=== PATIENT | male | born 1955 | race Two or more races ===

== ENCOUNTER 2017-09-11 21:41 | Inpatient (IN) | payer MEDICARE, MEDICAID ==
[~2017-09-11] VITALS: Ht 167.6 cm; Wt 69.9 kg
[2017-09-11] MEDS ORDERED: NITROGLYCERIN 50 MG/D5% WATER 250 ML IV PRN (21:45)
[2017-09-11 21:59] LABS: BASOPHILS % (AUTO) 0.7 % (0.0-2.0); EOSINOPHILS % (AUTO) 3.4 % (1.0-6.0); HEMATOCRIT 39.4 % (41-53); HEMOGLOBIN 13.3 g/dL (13.5-17.5); LYMPHOCYTES # (AUTO) 0.9 K/uL (1.0-4.8); LYMPHOCYTES % (AUTO) 10.9 % (22.0-44.0); MEAN CORPUSCULAR HEMOGLOBIN 29.6 pg (26.0-34.0); MEAN CORPUSCULAR HGB CONC 33.7 G/dL (31.0-37.0); MEAN CORPUSCULAR VOLUME 88 fL (80-100); MONOCYTES # (AUTO) 0.5 K/uL (0.1-1.0); MONOCYTES % (AUTO) 6.1 % (2.0-9.0); NEUTROPHILS # (AUTO) 6.9 K/uL (1.8-7.7); NEUTROPHILS % (AUTO) 78.9 % (40.0-70.0); PLATELET COUNT (AUTO) 215 K/uL (150-450); RED BLOOD CELL COUNT(AUTO) 4.48 MIL/uL (4.50-5.90); RED CELL DISTRIBUTION WIDTH 17.5 % (11.5-14.5); WHITE BLOOD COUNT (AUTO) 8.7 K/uL (4.5-11.0)
[2017-09-11] MEDS ORDERED: FUROSEMIDE 40 MG/4 ML VIAL IVP ONE (22:00)
[2017-09-11 22:04] LABS: RBC MORPHOLOGY COMMENT ABNORMAL RBC MORPH
[2017-09-11 22:09] LABS: ANION GAP 12 mmol/L (8-16); CALCIUM, TOTAL 9.2 mg/dL (8.8-10.5); CARBON DIOXIDE 27 mmol/L (22-29); CHLORIDE 95 mmol/L (98-107); CREATININE 7.93 mg/dL (0.60-1.30); GLOMERULAR FILTR. RATE CALC 7 mL/min (>60); POTASSIUM 5.3 mmol/L (3.5-5.1); SODIUM SERUM 134 mmol/L (136-145); UREA NITROGEN, BLOOD 46 mg/dL (7-18)
[2017-09-11 22:19] LABS: PROTHROMBIN TIME 10.4 SEC (9.4-11.6)
[2017-09-11 22:34] LABS: ALANINE AMINOTRANSFERASE 13 U/L (12-78); ALBUMIN 3.6 g/dL (3.4-5.0); ASPARTATE AMINOTRANSFERASE 13 U/L (15-37); BILIRUBIN,TOTAL 0.6 mg/dL (0.1-1.0); CREATINE KINASE MB 2.7 ng/mL (0-5); CREATINE KINASE, TOTAL 84 U/L (39-308); TOTAL PROTEIN, SERUM 8.5 g/dL (6.4-8.2)
[2017-09-11] MEDS ORDERED: CLON0.3T PO (22:34)
[2017-09-11] MEDS ORDERED: COMB5OS OU (22:34)
[2017-09-11] MEDS ORDERED: INSNOV SQ (22:34)
[2017-09-11] MEDS ORDERED: HYDR-4061 PO (22:34)
[2017-09-11] MEDS ORDERED: NIFE60TA81 PO (22:34)
[2017-09-11] MEDS ORDERED: DORZ210OS OU (22:34)
[2017-09-11] MEDS ORDERED: SIMV-260 PO (22:34)
[2017-09-11] MEDS ORDERED: INSLAN SQ (22:34)
[2017-09-11] MEDS ORDERED: SEVEC800 PO (22:34)
[2017-09-11] MEDS ORDERED: CILO100T PO (22:34)
[2017-09-11] MEDS ORDERED: PARO20TA24 PO (22:34)
[2017-09-11] MEDS ORDERED: OMEP20 PO (22:34)
[2017-09-11] MEDS ORDERED: CLOP75 PO (22:34)
[2017-09-11] MEDS ORDERED: CLOT15CR5 TP (22:34)
[2017-09-11 22:39] LABS: B-TYPE NATRIURETIC PEPTIDE 2920 pg/mL (0-100)
[2017-09-11] MEDS ORDERED: 0.9% SODIUM CHLORIDE 10 ML SYRINGE IVP PRN (22:45)
[2017-09-11] MEDS ORDERED: ASPIRIN 325 MG TABLET PO ONE (22:45)
[2017-09-11] MEDS ORDERED: ONDANSETRON HCL 4 MG/2 ML VIAL IVP PRN ×2 (22:45→23:00)
[2017-09-11] MEDS ORDERED: ACETAMINOPHEN 325 MG TABLET PO PRN ×2 (22:45→23:00)
[2017-09-11] MEDS ORDERED: BISACODYL 10 MG RECTAL RECTAL SUPPOSITORY PR PRN (23:00)
[2017-09-11] MEDS ORDERED: DEXTROSE 50%-WATER 25 GM/50 ML SYRINGE IVP PRN (23:00)
[2017-09-11] MEDS ORDERED: ALBUTEROL SULFATE 2.5 MG/0.5 ML NEB SOLUTION NEB PRN (23:00)
[2017-09-11] MEDS ORDERED: OxyCODONE HCL/ACETAMINOPHEN 5-325 MG TABLET PO PRN (23:00)
[2017-09-11] MEDS ORDERED: IPRATROPIUM BROMIDE 0.5 MG/2.5 ML NEB SOLUTION NEB PRN (23:00)
[2017-09-11] MEDS ORDERED: MAGNESIUM HYDROXIDE SUSPENSION 30 ML UDCUP PO PRN (23:00)
[2017-09-11] MEDS ORDERED: ZOLPIDEM TARTRATE 5 MG TABLET PO PRN (23:00)
[2017-09-12] VITALS: BP_SYST 220; BP_DIAS 106; BP_DIAS 160
[2017-09-12] MEDS ORDERED: INFLUENZA VIRUS VACCINE QVS 2017-18 (3YR+)/PF 60 MCG/0.5 ML SYRINGE IM ONE (02:30)
[2017-09-12 04:00] VITALS: BP 206/112
[2017-09-12] MEDS ORDERED: CloNIDine HCL 0.1 MG TABLET PO PRN (04:15)
[2017-09-12 05:10] LABS: BASOPHILS % (AUTO) 1.2 % (0.0-2.0); EOSINOPHILS % (AUTO) 1.3 % (1.0-6.0); HEMATOCRIT 32.7 % (41-53); HEMOGLOBIN 11.1 g/dL (13.5-17.5); LYMPHOCYTES # (AUTO) 0.8 K/uL (1.0-4.8); LYMPHOCYTES % (AUTO) 12.1 % (22.0-44.0); MEAN CORPUSCULAR HEMOGLOBIN 29.9 pg (26.0-34.0); MEAN CORPUSCULAR HGB CONC 33.9 G/dL (31.0-37.0); MEAN CORPUSCULAR VOLUME 88 fL (80-100); MONOCYTES # (AUTO) 0.5 K/uL (0.1-1.0); MONOCYTES % (AUTO) 7.8 % (2.0-9.0); NEUTROPHILS # (AUTO) 4.9 K/uL (1.8-7.7); NEUTROPHILS % (AUTO) 77.6 % (40.0-70.0); PLATELET COUNT (AUTO) 185 K/uL (150-450); RED BLOOD CELL COUNT(AUTO) 3.72 MIL/uL (4.50-5.90); RED CELL DISTRIBUTION WIDTH 17.6 % (11.5-14.5); WHITE BLOOD COUNT (AUTO) 6.3 K/uL (4.5-11.0)
[2017-09-12 05:30] LABS: ALBUMIN 3.1 g/dL (3.4-5.0); BILIRUBIN,TOTAL 0.6 mg/dL (0.1-1.0); CALCIUM, TOTAL 8.7 mg/dL (8.8-10.5); CREATININE 5.44 mg/dL (0.60-1.30); MAGNESIUM 2.2 mg/dL (1.80-2.40); PHOSPHORUS 4.1 mg/dL (2.5-4.9); POTASSIUM 4.4 mmol/L (3.5-5.1); TOTAL PROTEIN, SERUM 7.1 g/dL (6.4-8.2)
[2017-09-12 05:54] LABS: RBC MORPHOLOGY COMMENT ABNORMAL RBC MORPH
[2017-09-12] MEDS: INSULIN ASPART 100 UNITS/ML SQ SCH ×3 (06:51→17:00)
[2017-09-12 06:52] LABS: GLUCOSE COMMENT 1 Received Meds; GLUCOSE,POINT OF CARE 133 MG/DL (70-110)
[2017-09-12] MEDS: CILOSTAZOL 100 MG TABLET PO SCH (06:53)
[2017-09-12] MEDS: LABETALOL HCL 200 MG in DEXTROSE 5%-WATER 160 ML IV PRN ×2 (07:01→08:39)
[2017-09-12 08:00] VITALS: BP 191/98
[2017-09-12] MEDS: PANTOPRAZOLE SODIUM 40 MG DR TABLET PO SCH (08:48)
[2017-09-12] MEDS: SEVELAMER CARBONATE 800 MG TABLET PO SCH (08:49)
[2017-09-12] MEDS: PARoxetine HCL 20 MG TABLET PO SCH (08:49)
[2017-09-12] MEDS: SIMVASTATIN 20 MG TABLET PO SCH (08:49)
[2017-09-12] MEDS: CLOPIDOGREL BISULFATE 75 MG TABLET PO SCH (08:49)
[2017-09-12] MEDS: DORZOLAMIDE HCL 2% 10 ML OPHTHALMIC SOLUTION OU SCH ×2 (08:50→20:01)
[2017-09-12] MEDS: BRIMONIDINE/TIMOLOL 0.2-0.5% 5 ML OPHTHALMIC SOLUTION OU SCH ×2 (08:50→20:01)
[2017-09-12] MEDS: HEPARIN SODIUM,PORCINE 5,000 UNITS/ML VIAL SQ SCH ×2 (08:50→20:01)
[2017-09-12] MEDS: CLOTRIMAZOLE 1%/BETAMETH DIP 0.05% 15 GM CREAM TP SCH ×2 (08:50→20:02)
[2017-09-12] MEDS: NIFEdipine 60 MG ER TABLET PO SCH (08:50)
[2017-09-12] MEDS: AmLODIPine BESYLATE 10 MG TABLET PO SCH ×2 (11:22→20:01)
[2017-09-12] MEDS ORDERED: SODIUM CHLORIDE 0.9% 1,000 ML IV ONE (11:56)
[2017-09-12 12:00] VITALS: BP 182/91
[2017-09-12] MEDS: NICARDipine 20 MG/DEXT,ISO-OSM 200 ML IV PRN ×3 (12:06→21:29)
[2017-09-12 12:07] LABS: GLUCOSE,POINT OF CARE 187 MG/DL (70-110)
[2017-09-12 12:07] LABS: GLUCOSE COMMENT 1 Doctor Notified; GLUCOSE,POINT OF CARE 62 MG/DL (70-110)
[2017-09-12 16:00] VITALS: BP 161/68
[2017-09-12 17:03] LABS: GLUCOSE,POINT OF CARE 150 MG/DL (70-110)
[2017-09-12 20:00] VITALS: BP 125/96
[2017-09-12] MEDS: METOPROLOL TARTRATE 25 MG TABLET PO SCH (20:01)
[2017-09-12] MEDS: INSULIN ASPART 100 UNITS/ML SQ PRN (20:35)
[2017-09-12] MEDS ORDERED: INSULIN DETEMIR 100 UNITS/ML SQ SCH (21:00)
[2017-09-12 22:22] LABS: GLUCOSE COMMENT 1 Received Meds; GLUCOSE,POINT OF CARE 206 MG/DL (70-110)
[2017-09-13] VITALS: BP 129/56
[2017-09-13 04:00] VITALS: BP 127/57
[2017-09-13 05:36] LABS: CALCIUM, TOTAL 8.5 mg/dL (8.8-10.5); CREATININE 4.89 mg/dL (0.60-1.30); POTASSIUM 4.4 mmol/L (3.5-5.1)
[2017-09-13] MEDS: CILOSTAZOL 100 MG TABLET PO SCH (05:57)
[2017-09-13] MEDS: INSULIN ASPART 100 UNITS/ML SQ SCH (05:58)
[2017-09-13] MEDS: INSULIN ASPART 100 UNITS/ML SQ PRN ×3 (05:58→22:48)
[2017-09-13 08:00] VITALS: BP 136/67
[2017-09-13 08:31] LABS: GLUCOSE,POINT OF CARE 148 MG/DL (70-110)
[2017-09-13] MEDS: SEVELAMER CARBONATE 800 MG TABLET PO SCH (08:39)
[2017-09-13] MEDS: SIMVASTATIN 20 MG TABLET PO SCH (08:40)
[2017-09-13] MEDS: METOPROLOL TARTRATE 25 MG TABLET PO SCH ×2 (08:40→09:09)
[2017-09-13] MEDS: HEPARIN SODIUM,PORCINE 5,000 UNITS/ML VIAL SQ SCH ×2 (08:41→21:21)
[2017-09-13] MEDS: CLOPIDOGREL BISULFATE 75 MG TABLET PO SCH (08:41)
[2017-09-13] MEDS: PANTOPRAZOLE SODIUM 40 MG DR TABLET PO SCH (08:41)
[2017-09-13] MEDS: NIFEdipine 60 MG ER TABLET PO SCH (08:42)
[2017-09-13] MEDS: PARoxetine HCL 20 MG TABLET PO SCH (08:42)
[2017-09-13] MEDS: BRIMONIDINE/TIMOLOL 0.2-0.5% 5 ML OPHTHALMIC SOLUTION OU SCH ×2 (09:06→21:23)
[2017-09-13] MEDS: DORZOLAMIDE HCL 2% 10 ML OPHTHALMIC SOLUTION OU SCH ×2 (09:06→21:23)
[2017-09-13] MEDS: CLOTRIMAZOLE 1%/BETAMETH DIP 0.05% 15 GM CREAM TP SCH ×2 (09:07→21:23)
[2017-09-13] MEDS: AmLODIPine BESYLATE 10 MG TABLET PO SCH ×3 (09:08→21:21)
[2017-09-13 12:00] VITALS: BP 128/60
[2017-09-13 17:23] VITALS: BP 140/64
[2017-09-13 17:32] LABS: GLUCOSE,POINT OF CARE 138 MG/DL (70-110)
[2017-09-13 18:13] LABS: GLUCOSE,POINT OF CARE 164 MG/DL (70-110)
[2017-09-13 21:26] VITALS: BP 125/56
[2017-09-14 00:17] VITALS: BP 129/60
[2017-09-14 05:54] VITALS: BP 128/59
[2017-09-14] MEDS: CILOSTAZOL 100 MG TABLET PO SCH (06:42)
[2017-09-14] MEDS: INSULIN ASPART 100 UNITS/ML SQ PRN (06:44)
[2017-09-14 07:22] VITALS: BP 125/55
[2017-09-14 07:32] LABS: GLUCOSE COMMENT 1 Received Meds; GLUCOSE,POINT OF CARE 159 MG/DL (70-110)
[2017-09-14 07:42] LABS: GLUCOSE COMMENT 1 Received Meds; GLUCOSE,POINT OF CARE 192 MG/DL (70-110)
[2017-09-14] MEDS: SIMVASTATIN 20 MG TABLET PO SCH (08:15)
[2017-09-14] MEDS: SEVELAMER CARBONATE 800 MG TABLET PO SCH (08:15)
[2017-09-14] MEDS: DORZOLAMIDE HCL 2% 10 ML OPHTHALMIC SOLUTION OU SCH (08:15)
[2017-09-14] MEDS: BRIMONIDINE/TIMOLOL 0.2-0.5% 5 ML OPHTHALMIC SOLUTION OU SCH (08:15)
[2017-09-14] MEDS: HEPARIN SODIUM,PORCINE 5,000 UNITS/ML VIAL SQ SCH (08:15)
[2017-09-14] MEDS: CLOPIDOGREL BISULFATE 75 MG TABLET PO SCH (08:16)
[2017-09-14] MEDS: PANTOPRAZOLE SODIUM 40 MG DR TABLET PO SCH (08:16)
[2017-09-14] MEDS: CLOTRIMAZOLE 1%/BETAMETH DIP 0.05% 15 GM CREAM TP SCH (08:16)
[2017-09-14] MEDS: METOPROLOL TARTRATE 25 MG TABLET PO SCH (09:00)
[2017-09-14] MEDS: PARoxetine HCL 20 MG TABLET PO SCH (09:00)
[2017-09-14] MEDS ORDERED: EPOETIN ALFA 10,000 UNITS/ML 2 ML VIAL SQ SCH (09:00)
[2017-09-14] MEDS: NIFEdipine 60 MG ER TABLET PO SCH (09:00)
[2017-09-14] MEDS: AmLODIPine BESYLATE 10 MG TABLET PO SCH (09:00)
[2017-09-14 11:43] VITALS: BP 141/60
[2017-09-14 12:07] LABS: GLUCOSE,POINT OF CARE 95 MG/DL (70-110)
[2017-09-14 15:40] VITALS: BP 170/84
[2017-09-14] MEDS ORDERED: SODIUM CHLORIDE 0.9% 2,000 ML IV ONE (18:03)
[2017-09-14 19:47] LABS: GLUCOSE,POINT OF CARE 128 MG/DL (70-110)
[2017-09-14] MEDS ORDERED: OXYGEN THERAPY IH SCH (20:00)
== END 2017-09-14 19:20 | disposition home health service (06) | DRG 189 ==
LOC: EMS 21:43 → ICU 22:18 → 5N 09-13 16:00
PROVIDERS: ADMIT Internal Medicine; ATTEND Internal Medicine
PROC: 5A09357 Assistance with Respiratory Ventilation, Less than 24 Consecutive Hours, Continuous Positive Airway Pressure (ICD-10-PCS; principal; 2017-09-11)
PROC: 5A1D70Z Performance of Urinary Filtration, Intermittent, Less than 6 Hours Per Day (ICD-10-PCS; 2017-09-12)
PROC: 5A1D70Z Performance of Urinary Filtration, Intermittent, Less than 6 Hours Per Day (ICD-10-PCS; 2017-09-14)
DX: J96.00 Acute respiratory failure, unspecified whether with hypoxia or hypercapnia (principal); G93.41 Metabolic encephalopathy; E11.21 Type 2 diabetes mellitus with diabetic nephropathy; E11.51 Type 2 diabetes mellitus with diabetic peripheral angiopathy without gangrene; E11.319 Type 2 diabetes mellitus with unspecified diabetic retinopathy without macular edema; N18.6 End stage renal disease; I16.1 Hypertensive emergency; E87.1 Hypo-osmolality and hyponatremia; I12.0 Hypertensive chronic kidney disease with stage 5 chronic kidney disease or end stage renal disease; J96.91 Respiratory failure, unspecified with hypoxia; E11.22 Type 2 diabetes mellitus with diabetic chronic kidney disease; E11.65 Type 2 diabetes mellitus with hyperglycemia; E87.5 Hyperkalemia; I25.10 Atherosclerotic heart disease of native coronary artery without angina pectoris; H40.9 Unspecified glaucoma; E78.5 Hyperlipidemia, unspecified; K21.9 Gastro-esophageal reflux disease without esophagitis; F32.9 Major depressive disorder, single episode, unspecified; Z99.2 Dependence on renal dialysis; E87.70 Fluid overload, unspecified; J44.9 Chronic obstructive pulmonary disease, unspecified; Z79.4 Long term (current) use of insulin; Z87.891 Personal history of nicotine dependence; Z89.512 Acquired absence of left leg below knee; Z91.19 Patient's noncompliance with other medical treatment and regimen; M19.90 Unspecified osteoarthritis, unspecified site
CPT/HCPCS: 70450; 82962; 83735; 84100; 87081; 87340; 90935; 93005; 94660; 96365; 96366; 96375; 97110; 97162; 97530; 99291; J0885; J1644; J1815; J1940; J3490; J7030; J7060